=== PATIENT | female | born 1985 | race Caucasian/White ===

== ENCOUNTER 2019-10-06 21:11 | Emergency (ER) | payer SELFPAY ==
[~2019-10-06] VITALS: Ht 162.6 cm; Wt 63.6 kg
[2019-10-06 21:49] LABS: ALANINE AMINOTRANSFERASE 19 U/L (9-52); ALBUMIN 4.3 gm/dL (3.5-5.0); ALKALINE PHOSPHATASE 52 U/L (50-136); ANION GAP 8 mmol/L (7-16); AST,SGOT 27 U/L (15-37); BASO % 0.4 % (0.0-2.0); BILIRUBIN,TOTAL < 0.1 mg/dL (0.0-1.0); BLOOD UREA NITROGEN 11 mg/dL (7-17); CALCIUM 9.3 mg/dL (8.4-10.2); CARBON DIOXIDE 31 mmol/L (22-30); CHLORIDE 111 mmol/L (98-107); CREATININE, serum 0.66 (0.52-1.25); EOS # 0.1 (0.0-0.7); EOS % 1.2 % (0-4.0); GLUCOSE 102 mg/dL (74-106); GRAN # 3.3 (1.4-6.5); GRAN % 44.5 % (42.2-75.2); HEMATOCRIT 37.9 % (37.0-47.0); HEMOGLOBIN 12.7 g/dl (12.5-16.0); LYMPH # 3.2 (1.2-3.4); MEAN CELL VOLUME 102 fl (80.0-100.0); MEAN CORPUSCULAR HEMOGLOBIN 34 pg (27.0-31.0); MEAN CORPUSCULAR HGB CONC 34 g/dl (33.0-37.0); MEAN PLATELET VOLUME 9.4 fl (7.4-10.4); MONO # 0.8 (0.1-0.6); MONO % 10.8 % (1.7-9.3); PLATELET COUNT 207 K/mm3 (130-400); POTASSIUM 5.1 mmol/L (3.4-5.0); RED BLOOD COUNT 3.71 M/mm3 (4.10-5.30); REDCELL DISTRIBUTION WIDTH-CV 13.4 % (11.5-14.5); SODIUM 149 mmol/L (137-145); TOTAL PROTEIN 7.9 gm/dL (6.4-8.2)
[2019-10-06 21:54] LABS: ACETAMINOPHEN < 10 ug/mL (10-30); SALICYLATE < 1.0 mg/dL
[2019-10-06 22:37] LABS: ALCOHOL(ethanol),MEDICAL 416 mg/dL
[2019-10-07 04:51] LABS: MUCOUS Present /lpf; PH 5 (5-8); SQUAMOUS EPITHELIAL 0-2 /hpf; URINE APPEARANCE Clear; URINE BACTERIA None Seen /hpf; URINE BILIRUBIN Negative (NEGATIVE); URINE BLOOD Negative (NEGATIVE); URINE COLOR Yellow; URINE GLUCOSE Negative (NEGATIVE); URINE KETONE Negative (NEGATIVE); URINE LEUKOCYTE ESTERASE Negative (NEGATIVE); URINE NITRATE Negative (NEGATIVE); URINE PROTEIN(semi-quant) Negative (NEGATIVE); URINE RBC 0-2 /hpf; URINE UROBILINOGEN Negative (NEGATIVE); URINE WBC 0-2 /hpf
[2019-10-07 04:52] LABS: COLLECTION METHOD CLEAN CATCH
[2019-10-07 05:00] LABS: TRICYCLIC ANTIDEPRESS URINE NEGATIVE
[2019-10-07 08:07] VITALS: BP 134/74; PULSE 78; TEMP 98.1
== END 2019-10-07 08:07 | disposition home or self-care (01) ==
LOC: COL.ER 21:11
PROVIDERS: Emergency Medicine
DX: F10.129 Alcohol abuse with intoxication, unspecified (principal); Y90.8 Blood alcohol level of 240 mg/100 ml or more
CPT/HCPCS: J2405; J7030

== ENCOUNTER 2019-10-17 09:58 | Emergency (ER) | payer SELFPAY ==
[~2019-10-17] VITALS: Ht 165.1 cm; Wt 50.0 kg
[2019-10-17 11:37] VITALS: BP 123/77; TEMP 98.1
[2019-10-17 11:52] LABS: COLLECTION METHOD CLEAN CATCH
[2019-10-17 12:03] LABS: PH 6 (5-8); SQUAMOUS EPITHELIAL 0-2 /hpf; URINE APPEARANCE Clear; URINE BACTERIA None Seen /hpf; URINE BILIRUBIN Negative (NEGATIVE); URINE BLOOD 2+ (NEGATIVE); URINE COLOR Colorless; URINE GLUCOSE Negative (NEGATIVE); URINE KETONE Negative (NEGATIVE); URINE LEUKOCYTE ESTERASE Negative (NEGATIVE); URINE NITRATE Negative (NEGATIVE); URINE PROTEIN(semi-quant) Negative (NEGATIVE); URINE RBC None Seen /hpf; URINE UROBILINOGEN Negative (NEGATIVE)
[2019-10-17 12:21] LABS: TRICYCLIC ANTIDEPRESS URINE NEGATIVE
[2019-10-17 12:44] LABS: BASO % 0.5 % (0.0-2.0); EOS # 0.1 (0.0-0.7); EOS % 0.8 % (0-4.0); GRAN # 2.8 (1.4-6.5); GRAN % 44.9 % (42.2-75.2); HEMATOCRIT 40.7 % (37.0-47.0); HEMOGLOBIN 13.5 g/dl (12.5-16.0); MEAN CELL VOLUME 102 fl (80.0-100.0); MEAN CORPUSCULAR HEMOGLOBIN 34 pg (27.0-31.0); MEAN CORPUSCULAR HGB CONC 33 g/dl (33.0-37.0); MEAN PLATELET VOLUME 9.3 fl (7.4-10.4); MONO # 0.3 (0.1-0.6); MONO % 5.5 % (1.7-9.3); PLATELET COUNT 228 K/mm3 (130-400); RED BLOOD COUNT 3.99 M/mm3 (4.10-5.30); REDCELL DISTRIBUTION WIDTH-CV 13.5 % (11.5-14.5)
[2019-10-17 12:54] LABS: ALANINE AMINOTRANSFERASE 18 U/L (9-52); ALBUMIN 4.6 gm/dL (3.5-5.0); ALKALINE PHOSPHATASE 61 U/L (50-136); ANION GAP 9 mmol/L (7-16); AST,SGOT 35 U/L (15-37); BILIRUBIN,TOTAL 0.1 mg/dL (0.0-1.0); BLOOD UREA NITROGEN 15 mg/dL (7-17); CALCIUM 8.9 mg/dL (8.4-10.2); CARBON DIOXIDE 30 mmol/L (22-30); CHLORIDE 106 mmol/L (98-107); CREATININE, serum 0.65 (0.52-1.25); GLUCOSE 92 mg/dL (74-106); POTASSIUM 4.5 mmol/L (3.4-5.0); SODIUM 146 mmol/L (137-145); TOTAL PROTEIN 8.4 gm/dL (6.4-8.2)
[2019-10-17 13:00] LABS: ACETAMINOPHEN < 10 ug/mL (10-30); SALICYLATE < 1.0 mg/dL
[2019-10-17 13:02] LABS: ALCOHOL(ethanol),MEDICAL 351 mg/dL
[2019-10-17 15:15] VITALS: PULSE 105
[2019-10-17] MEDS ORDERED: TESSALON P100 MG/CAP PO (15:18)
== END 2019-10-17 15:15 | disposition home or self-care (01) ==
LOC: COL.ER 09:58
PROVIDERS: Physician Assistant
DX: S92.501A Displaced unspecified fracture of right lesser toe(s), initial encounter for closed fracture (principal); F32.9 Major depressive disorder, single episode, unspecified; F10.129 Alcohol abuse with intoxication, unspecified; F17.210 Nicotine dependence, cigarettes, uncomplicated; W22.8XXA Striking against or struck by other objects, initial encounter

== ENCOUNTER 2019-10-18 11:25 | Emergency (ER) | payer SELFPAY ==
[~2019-10-18 11:25] MED LIST: TESSALON P100 MG/CAP PO
[2019-10-18 11:26] VITALS: BP 115/73; PULSE 97; TEMP 97.9
[2019-10-18 11:54] LABS: COLLECTION METHOD CLEAN CATCH
[2019-10-18 12:15] LABS: TRICYCLIC ANTIDEPRESS URINE NEGATIVE
[2019-10-18 12:30] LABS: BASO % 0.6 % (0.0-2.0); EOS # 0.1 (0.0-0.7); EOS % 0.8 % (0-4.0); GRAN # 3.3 (1.4-6.5); GRAN % 50.4 % (42.2-75.2); HEMATOCRIT 40.8 % (37.0-47.0); HEMOGLOBIN 13.9 g/dl (12.5-16.0); LYMPH # 2.7 (1.2-3.4); LYMPH % 40.4 % (20.0-51.0); MEAN CELL VOLUME 101 fl (80.0-100.0); MEAN CORPUSCULAR HEMOGLOBIN 34 pg (27.0-31.0); MEAN CORPUSCULAR HGB CONC 34 g/dl (33.0-37.0); MEAN PLATELET VOLUME 9.1 fl (7.4-10.4); MONO # 0.5 (0.1-0.6); MONO % 7.5 % (1.7-9.3); PLATELET COUNT 224 K/mm3 (130-400); RED BLOOD COUNT 4.05 M/mm3 (4.10-5.30); REDCELL DISTRIBUTION WIDTH-CV 13.2 % (11.5-14.5)
[2019-10-18 12:35] LABS: ACETAMINOPHEN < 10 ug/mL (10-30); ALANINE AMINOTRANSFERASE 22 U/L (9-52); ALBUMIN 4.8 gm/dL (3.5-5.0); ALKALINE PHOSPHATASE 71 U/L (50-136); ANION GAP 8 mmol/L (7-16); AST,SGOT 45 U/L (15-37); BILIRUBIN,TOTAL 0.2 mg/dL (0.0-1.0); BLOOD UREA NITROGEN 16 mg/dL (7-17); CALCIUM 8.9 mg/dL (8.4-10.2); CARBON DIOXIDE 31 mmol/L (22-30); CHLORIDE 107 mmol/L (98-107); GLUCOSE 102 mg/dL (74-106); POTASSIUM 4.8 mmol/L (3.4-5.0); SALICYLATE < 1.0 mg/dL; SODIUM 145 mmol/L (137-145); TOTAL PROTEIN 8.7 gm/dL (6.4-8.2)
[2019-10-18 12:37] LABS: MUCOUS Present /lpf; PH 7 (5-8); SQUAMOUS EPITHELIAL 0-2 /hpf; URINE APPEARANCE Clear; URINE BACTERIA Rare /hpf; URINE BILIRUBIN Negative (NEGATIVE); URINE BLOOD Negative (NEGATIVE); URINE COLOR Straw; URINE GLUCOSE Negative (NEGATIVE); URINE KETONE Negative (NEGATIVE); URINE LEUKOCYTE ESTERASE 1+ (NEGATIVE); URINE NITRATE Negative (NEGATIVE); URINE PROTEIN(semi-quant) Negative (NEGATIVE); URINE RBC 0-2 /hpf; URINE UROBILINOGEN Negative (NEGATIVE)
[2019-10-18 12:52] LABS: ALCOHOL(ethanol),MEDICAL 429 mg/dL
== END 2019-10-18 15:15 | disposition left against medical advice (07) ==
LOC: COL.ER 11:25
PROVIDERS: Nurse Practitioner
DX: F10.129 Alcohol abuse with intoxication, unspecified (principal); F43.10 Post-traumatic stress disorder, unspecified; F17.210 Nicotine dependence, cigarettes, uncomplicated; Z88.0 Allergy status to penicillin; Z88.2 Allergy status to sulfonamides; Y90.8 Blood alcohol level of 240 mg/100 ml or more

== ENCOUNTER 2021-11-25 03:26 | Emergency (ER) | payer SELFPAY ==
[~2021-11-25] VITALS: Ht 165.1 cm; Wt 54.5 kg
[2021-11-25 03:54] LABS: BASO # 0.1 K/mm3 (0.0-0.2); BASO % 0.6 % (0.0-2.0); EOS # 0.1 K/mm3 (0.0-0.7); EOS % 0.9 % (0.0-4.0); GRAN # 5.4 K/mm3 (1.4-6.5); GRAN % 61.6 % (42.2-75.2); HEMATOCRIT 42.3 % (37.0-47.0); HEMOGLOBIN 14.6 g/dl (12.5-16.0); LYMPH # 2.5 K/mm3 (1.2-3.4); MEAN CELL VOLUME 90 fl (80.0-100.0); MEAN CORPUSCULAR HEMOGLOBIN 31 pg (27-31); MEAN CORPUSCULAR HGB CONC 35 g/dl (33.0-37.0); MEAN PLATELET VOLUME 10.4 fl (7.4-10.4); MONO # 0.8 K/mm3 (0.1-0.6); MONO % 8.7 % (1.7-9.3); PLATELET COUNT 216 K/mm3 (130-400); RED BLOOD COUNT 4.71 M/mm3 (4.10-5.30)
[2021-11-25 04:27] LABS: ALBUMIN 4.2 gm/dL (3.5-5.0); CALCIUM 8.9 mg/dL (8.4-10.2); CREATININE, serum 0.77 mg/dL (0.57-1.11); POTASSIUM 4.1 mmol/L (3.5-4.5); TOTAL PROTEIN 7.8 gm/dL (6.2-8.1)
[2021-11-25 04:27] LABS: COLLECTION METHOD CLEAN CATCH
[2021-11-25 04:38] LABS: MUCOUS Present (NOT PRESENT); PH 5 (5-8); URINE APPEARANCE Cloudy (CLEAR/HAZY); URINE BACTERIA None Seen /hpf (NONE SEEN); URINE BILIRUBIN Negative (NEGATIVE); URINE BLOOD Negative (NEGATIVE); URINE CALCIUM OXALATE CRYSTAL Present (NOT PRESENT); URINE COLOR Amber (YELLOW); URINE GLUCOSE Negative (NEGATIVE); URINE KETONE 1+ (NEGATIVE); URINE LEUKOCYTE ESTERASE 2+ (NEGATIVE); URINE NITRATE Negative (NEGATIVE); URINE PROTEIN(semi-quant) 1+ (NEGATIVE)
[2021-11-25 04:45] LABS: TRICYCLIC ANTIDEPRESS URINE NEGATIVE
[2021-11-25 05:27] VITALS: BP 121/72; PULSE 114; TEMP 98.5
== END 2021-11-25 05:27 | disposition home or self-care (01) ==
LOC: COL.ER 03:26
PROVIDERS: Emergency Medicine
DX: R10.11 Right upper quadrant pain (principal); F15.129 Other stimulant abuse with intoxication, unspecified; F17.210 Nicotine dependence, cigarettes, uncomplicated; Z32.02 Encounter for pregnancy test, result negative

== ENCOUNTER 2023-12-08 15:43 | Observation (INO) | payer OTHER ==
[~2023-12-08] VITALS: Ht 165.1 cm; Wt 68.2 kg
[2023-12-08] MEDS ORDERED: NS 1,000 ML IV ONE ×3 (16:30→20:15)
[2023-12-08 17:31] LABS: BASO % 0.3 % (0.0-2.0); GRAN # 9.1 K/mm3 (1.4-6.5); GRAN % 79.3 % (42.2-75.2); HEMATOCRIT 39.8 % (37.0-47.0); HEMOGLOBIN 13.4 g/dl (12.5-16.0); LYMPH # 1.4 K/mm3 (1.2-3.4); LYMPH % 11.7 % (20.0-51.0); MEAN CELL VOLUME 95 fl (80.0-100.0); MEAN CORPUSCULAR HEMOGLOBIN 32 pg (27-31); MEAN CORPUSCULAR HGB CONC 34 g/dl (33.0-37.0); MONO % 8.4 % (1.7-9.3); PLATELET COUNT 258 K/mm3 (130-400); REDCELL DISTRIBUTION WIDTH-CV 14.1 % (11.5-14.5)
[2023-12-08 17:46] LABS: ALANINE AMINOTRANSFERASE 16 U/L (0-55); ALBUMIN 3.4 gm/dL (3.5-5.0); ALKALINE PHOSPHATASE 92 U/L (40-150); ANION GAP 13 mmol/L (7-16); AST,SGOT 25 U/L (5-34); BILIRUBIN,TOTAL 0.6 mg/dL (0.2-1.2); BLOOD UREA NITROGEN 6 mg/dL (7-19); C-REACTIVE PROTEIN 1.94 mg/dL (0.00-0.50); CARBON DIOXIDE 21 mmol/L (22-29); CHLORIDE 103 mmol/L (98-107); CREATINE KINASE 295 U/L (29-168); CREATININE, serum 0.73 mg/dL (0.57-1.11); GLUCOSE 126 mg/dL (70-99); POTASSIUM 3.6 mmol/L (3.5-4.5); SODIUM 137 mmol/L (136-145); TOTAL PROTEIN 7.5 gm/dL (6.2-8.1)
[2023-12-08 17:58] LABS: INR 1.1 (0.8-3.0); PROTHROMBIN TIME 12.3 SECONDS (9.7-12.8)
[2023-12-08 18:05] LABS: THYROID STIMULATING HORMONE 1.644 uIU/mL (0.350-4.940)
[2023-12-08 18:06] LABS: TROPONIN-I < 0.010 ng/mL (0.00-0.033)
[2023-12-08] MEDS ORDERED: LORazepam 2 MG/ML 1 ML VIAL IV ONE (18:15)
[2023-12-08] MEDS ORDERED: Acetaminophen 325 MG TAB PO ONE (18:15)
[2023-12-08] MEDS ORDERED: NS 74 ML IV SCH (19:11)
[2023-12-08] MEDS ORDERED: Iohexol 300 - 100 ML VIAL IV ONE (19:11)
[2023-12-08 19:28] LABS: COLLECTION METHOD CLEAN CATCH
[2023-12-08 20:00] LABS: TRICYCLIC ANTIDEPRESS URINE NEGATIVE (NEGATIVE)
[2023-12-08 20:06] LABS: URINE APPEARANCE Cloudy (CLEAR/HAZY); URINE BLOOD TRACE-INTACT (NEGATIVE); URINE COLOR Yellow (YELLOW); URINE GLUCOSE Negative (NEGATIVE); URINE KETONE Negative (NEGATIVE); URINE NITRATE Positive (NEGATIVE); URINE PROTEIN(semi-quant) Negative (NEGATIVE); URINE UROBILINOGEN 0.2 E.U/dL (0.2-1.0)
[2023-12-08 20:07] LABS: URINE BACTERIA Many /hpf (NONE SEEN)
[2023-12-08] MEDS ORDERED: Ondansetron 4 MG/2 ML VIAL IV PRN (20:45)
[2023-12-08] MEDS ORDERED: Acetaminophen 500 MG TAB PO PRN (20:45)
[2023-12-08] MEDS ORDERED: NS 1,000 ML IV SCH (20:45)
--- NOTE | 2023-12-08 21:19 | NUR ---
REPORT RECIEVED FROM YOLANDA LONGORIA IN ER AT 2118.
[2023-12-08] MEDS ORDERED: Ciprofloxacin 250 MG TAB PO SCH (21:30)
[2023-12-08] MEDS ORDERED: cefTRIAXone 1 G in Water For Injection,Sterile 10 ML IV SCH (22:00)
--- NOTE | 2023-12-08 22:00 | NUR ---
FEMALE PATIENT ARRIVED TO ROOM #314 VIA WHEELCHAIR FROM ER AT 2200. PATIENT ASSISTED TO BED WITH STAND BY ASSIST. GAIT STEADY. OFFICER AT BEDSIDE. TELEMETRY INTACT. INT TO LEFT FOREARM INTACT. PATIENT NOTED TO HAVE CUFF TO RIGHT ANKLE AND ATTACHED TO LOWER BED RAIL. PATIENT VERBALIZED UNDERSTANDING OF CALL LIGHT AND BED CONTROLS. ALL NEEDS MET. BED IN LOW POSITION WITH WHEELS LOCKED WITH RAILS UP X3 AND CALL LIGHT WITHIN REACH.
[2023-12-08 22:06] VITALS: BP 131/97; PULSE 122; TEMP 100.1
--- NOTE | 2023-12-08 22:45 | NUR ---
PATIENT RESTING IN BED WITH TV OFF WITH NO ACUTE DISTRESS NOTED. PATIENT ON ROOM AIR. OFFICER AT BEDSIDE. INITAL ASSESSMENT AND MEDICATION ADMINISTRATION COMPLETED AT THIS TIME. PATIENT TOLERATED WELL. LEFT LOWER LEG NOTED TO BE SWOLLEN, RED, AND WARM TO TOUCH. REDNESS OUTLINED. SCAB NOTED TO LEFT HEEL FROM OLD ABRASION. ABRASION APPROXIMATELY 2 INCHES IN LENGTH AND LINEAR. PATIENT ASSISTED UP TO BATHROOM. PATIENT VOIDED 700 ML OF CLOUDY YELLOW URINE. PATIENT AMBULATED BACK TO BED. GAIT STEADY. PATIENT DENIES ANY OTHER NEEDS AT THIS TIME. BED IN LOW POSITION WITH WHEELS LOCKED WITH RAILS UP X3 AND CALL LIGHT WITHIN REACH.
[2023-12-08 23:57] VITALS: BP 153/88; PULSE 130; TEMP 97.8
[2023-12-09 03:13] VITALS: BP 145/79; PULSE 113; TEMP 98.2
[2023-12-09 04:00] VITALS: BP_SYST 145
[2023-12-09 06:52] VITALS: BP 146/94; PULSE 111; TEMP 98.2
[2023-12-09 07:23] LABS: BASO % 0.3 % (0.0-2.0); EOS # 0.1 K/mm3 (0.0-0.7); EOS % 1.3 % (0.0-4.0); GRAN # 4.5 K/mm3 (1.4-6.5); GRAN % 65.3 % (42.2-75.2); HEMOGLOBIN 12.2 g/dl (12.5-16.0); LYMPH # 1.5 K/mm3 (1.2-3.4); LYMPH % 22.3 % (20.0-51.0); MEAN CELL VOLUME 91 fl (80.0-100.0); MEAN CORPUSCULAR HEMOGLOBIN 32 pg (27-31); MEAN CORPUSCULAR HGB CONC 35 g/dl (33.0-37.0); MEAN PLATELET VOLUME 9.8 fl (7.4-10.4); MONO # 0.7 K/mm3 (0.1-0.6); MONO % 10.5 % (1.7-9.3); PLATELET COUNT 209 K/mm3 (130-400); RED BLOOD COUNT 3.84 M/mm3 (4.10-5.30); REDCELL DISTRIBUTION WIDTH-CV 14.1 % (11.5-14.5)
[2023-12-09 07:28] LABS: HEMATOCRIT 35.1 % (37.0-47.0)
[2023-12-09 07:46] LABS: ALANINE AMINOTRANSFERASE 17 U/L (0-55); ALBUMIN 2.9 gm/dL (3.5-5.0); ALKALINE PHOSPHATASE 80 U/L (40-150); ANION GAP 10 mmol/L (7-16); AST,SGOT 30 U/L (5-34); BILIRUBIN,TOTAL 0.7 mg/dL (0.2-1.2); BLOOD UREA NITROGEN < 5 mg/dL (7-19); CALCIUM 8.4 mg/dL (8.4-10.2); CARBON DIOXIDE 20 mmol/L (22-29); CHLORIDE 110 mmol/L (98-107); CREATININE, serum 0.63 mg/dL (0.57-1.11); GLUCOSE 92 mg/dL (70-99); POTASSIUM 3.6 mmol/L (3.5-4.5); SODIUM 140 mmol/L (136-145); TOTAL PROTEIN 6.2 gm/dL (6.2-8.1)
[2023-12-09] MEDS ORDERED: Cefuroxime 250 MG TAB PO SCH (10:17)
--- NOTE | 2023-12-09 10:56 | NUR ---
Initial visit; Patient needing rest. Body Designer offered God's blessings and will keep Kyleigh in her prayers. Body Designer let her know of Body Designer availability. Kyleigh is a very easy person for everyone to care about.
--- NOTE | 2023-12-09 11:28 | NUR ---
fibreglass lay up worker spoke with office Selwyn Aguilera at [facility]. He confirms pt will remain and return in custody to [facility]. Discharge Plan: [facility]
[2023-12-09] MEDS ORDERED: CEFTIN500 MG PO (11:46)
== END 2023-12-09 13:05 ==
LOC: COL.ER 15:43 → MEDICAL 20:05
PROVIDERS: Emergency Medicine; ADMIT Internal Medicine
DX: L03.116 Cellulitis of left lower limb (principal); R79.1 Abnormal coagulation profile; R00.0 Tachycardia, unspecified; N39.0 Urinary tract infection, site not specified; F15.10 Other stimulant abuse, uncomplicated; F12.10 Cannabis abuse, uncomplicated; F17.210 Nicotine dependence, cigarettes, uncomplicated; F17.290 Nicotine dependence, other tobacco product, uncomplicated
CPT/HCPCS: G0378; J0696; J1650; J2060; J7030; Q9967